=== PATIENT | female | born 1995 ===

== ENCOUNTER 2023-11-29 06:10 | Day surgery (SDC) | payer BC, SELFPAY ==
[2023-11-21 07:15] VITALS: BMI 23.3
[2023-11-21 08:46] LABS: % Basophils 0.4 % (0-2); % Eosinophils 1.8 % (0-6); % Immature Granulocytes 0.3 % (0-0.5); % Lymphocytes 36.8 % (20.5-51.1); % Neutrophils 53.7 % (42.2-75.2); Absolute Eosinophils 0.1 10^3/uL (0-0.7); Absolute Lymphocytes 2.5 10^3/uL (1.2-3.4); Absolute Monocytes 0.5 10^3/uL (0.1-0.6); Absolute Neutrophils 3.6 10^3/uL (1.4-6.5); Hemoglobin 13.2 g/dL (12.0-16.0); Mean Corp Hgb Conc. 34.7 g/dL (33.0-37.0); Mean Corpuscular Hgb 31.4 pg (27.0-31.0); Mean Corpuscular Volume 90.5 fL (81.0-99.0); Nucleated Red Blood Cells % 0 %; Platelet Count 264 10^3/uL (130-400); Red Cell Dist. Width 12.7 % (11.5-14.5); White Blood Cell Count 6.7 10^3/uL (4.8-10.8)
[2023-11-21 09:17] LABS: Blood Urea Nitrogen 15 mg/dl (7-17); Calcium 9.6 mg/dl (8.4-10.2); Carbon Dioxide 25 mmol/L (22-30); Chloride 105 mmol/L (98-107); Estimated Creatinine Clearance 100 ml/min; Glucose 84 mg/dl (70-99); Potassium 4.8 mmol/L (3.5-5.1); Sodium 134 mmol/L (135-145); eGFR > 60.00
[2023-11-29 06:23] VITALS: BP 96/64
[2023-11-29] MEDS: NORMOSOL-R 1000 IV (06:46)
[2023-11-29 06:50] VITALS: BMI 23.3
[2023-11-29 06:53] LABS: HCG, Urine Qualitative Screen Negative
[2023-11-29 09:12] VITALS: BP 93/59
[2023-11-29 09:15] VITALS: BP 99/59
[2023-11-29 09:30] VITALS: BP 89/60
[2023-11-29 09:45] VITALS: BP 90/58
[2023-11-29 09:54] VITALS: BP 98/62
== END 2023-11-29 10:10 | disposition home or self-care (01) ==
LOC: SDS 06:10
PROVIDERS: ATTENDING PHYSICIAN Obstetrics & Gynecology
DX: D06.0 Carcinoma in situ of endocervix (principal); Z97.5 Presence of (intrauterine) contraceptive device
CPT/HCPCS: 57522; 58301; 88305; 88307; 36415; 80048; 81025; 85025